=== PATIENT | male | born 1960 | race Caucasian/White ===

== ENCOUNTER → 2022-07-19 | Outpatient (CLI) | payer MEDICARE, SELFPAY | LOC: M OUTALCOH 09:03 | PROVIDERS: ATTEND Psychiatry & Neurology Psychiatry | DX: Z13.39 Encounter for screening examination for other mental health and behavioral disorders (principal) ==

== ENCOUNTER → 2024-04-05 | Outpatient (CLI) | payer OTHER | LOC: M CARPUL 13:38 | PROVIDERS: ATTEND Physician Assistant Medical | DX: R01.1 Cardiac murmur, unspecified (principal) ==

== ENCOUNTER → 2024-07-30 | Outpatient (CLI) | payer MEDICARE ==
[2024-07-30 18:15] LABS: BASO # 0.1 10^3/uL (0.0-0.2); BASO % 0.9 % (0.0-1.0); EOS # 0.1 10^3/uL (0.0-0.5); EOS % 1.8 % (0.0-3.0); HEMATOCRIT 43.4 % (42.0-52.0); HEMOGLOBIN 14.6 g/dl (13.5-17.5); LYMPH # 1.8 10^3/uL (1.5-5.0); LYMPH % 24.1 % (24.0-44.0); MEAN CORPUSCULAR HEMOGLOBIN 29.6 pg (27.0-33.0); MEAN CORPUSCULAR HGB CONC 33.6 g/dl (32.0-36.5); MEAN CORPUSCULAR VOLUME 87.9 fl (80.0-96.0); MONO # 0.6 10^3/uL (0.0-0.8); MONO % 7.5 % (2.0-8.0); NEUTROPHILS % 65.3 % (36.0-66.0); PLATELET COUNT, AUTOMATED 349 10^3/uL (150-450); RED BLOOD COUNT 4.94 10^6/uL (4.30-6.10); WHITE BLOOD COUNT 7.6 10^3/uL (4.0-10.0)
[2024-07-30 18:44] LABS: HEMOGLOBIN A1c 5.4 % (4.0-6.0)
[2024-07-30 19:00] LABS: ALKALINE PHOSPHATASE 92 U/L (46-116); ALT/SGPT 22 U/L (7.0-40); AST/SGOT 10 U/L (<34); BILIRUBIN,TOTAL 0.6 MG/DL (0.3-1.2); BLOOD UREA NITROGEN 19 MG/DL (9-23); CALCIUM LEVEL 9.5 MG/DL (8.3-10.6); CARBON DIOXIDE LEVEL 26 MMOL/L (20-31); CHLORIDE LEVEL 106 MMOL/L (98-107); CHOLESTEROL LEVEL 224 MG/DL (<200); CHOLESTEROL RISK RATIO 4.12 (<5); CREATININE FOR GFR 1.14 MG/DL (0.70-1.30); GLOMERULAR FILTRATION RATE > 60.0 (>49); GLUCOSE, FASTING 86 MG/DL (74-106); HDL CHOLESTEROL 54.3 MG/DL (>40); LDL CHOLESTEROL 146.7 MG/DL (<100); NON-HDL-C 169.7 MG/DL; POTASSIUM SERUM 4.3 MMOL/L (3.5-5.1); PSA SCREENING 6.51 NG/ML (< 4.00); SODIUM LEVEL 136 MMOL/L (136-145); TOTAL PROTEIN 7.3 G/DL (5.7-8.2); TRIGLYCERIDES LEVEL 115 MG/DL (<150)
[2024-07-30 19:03] LABS: THYROID STIMULATING HORMONE 3.536 uIU/ML (0.55-4.78)
[2024-07-30 19:04] LABS: TOTAL 25(OH) VITAMIN D 37.2 NG/ML (20.0-100.0)
[2024-07-30 19:05] LABS: FREE T4 1.33 NG/DL (0.89-1.76); VITAMIN B12 LEVEL 554 PG/ML (211-911)
[2024-07-30 19:19] LABS: HEPATITIS B SURFACE ANTIBODY NEGATIVE (POSITIVE)
[2024-07-30 19:22] LABS: HEPATITIS B SURFACE ANTIGEN NEGATIVE (NEGATIVE)
[2024-07-30 19:35] LABS: HIV 1&2 SCREEN NEGATIVE (NEGATIVE)
[2024-07-30 19:43] LABS: HEPATITIS C VIRUS ABY INDEX < 0.02 INDEX (<0.8)
[2024-08-01 20:02] LABS: HEPATITIS A IgG TOTAL NON-REACTIVE (NON-REACTIVE); HEPATITIS B CORE ANTIBODY IGG NON-REACTIVE (NON-REACTIVE)
== END ==
LOC: M PLALAB 15:36
PROVIDERS: ATTEND Nurse Practitioner Family
DX: F10.20 Alcohol dependence, uncomplicated (principal); F15.20 Other stimulant dependence, uncomplicated; Z11.59 Encounter for screening for other viral diseases; Z12.5 Encounter for screening for malignant neoplasm of prostate; Z13.1 Encounter for screening for diabetes mellitus
CPT/HCPCS: 36415; 80053; 80061; 82306; 82607; 83036; 84439; 84443; 85025; 86704; 86706; 86708; 86803; 87340; 87389; G0103

== ENCOUNTER → 2024-07-30 | Outpatient (CLI) | payer MEDICARE | LOC: M OUTALCOH 13:07 | PROVIDERS: ATTEND Psychiatry & Neurology Psychiatry | DX: F15.20 Other stimulant dependence, uncomplicated (principal); F12.20 Cannabis dependence, uncomplicated | CPT/HCPCS: 90791; G0463 ==

== ENCOUNTER 2024-08-18 16:00 | Outpatient (RCR) | payer MEDICARE | END 2024-08-19 | LOC: M OUTALCOH 16:00 | PROVIDERS: ATTEND Psychiatry & Neurology Psychiatry | DX: F15.20 Other stimulant dependence, uncomplicated (principal); F12.20 Cannabis dependence, uncomplicated ==

== ENCOUNTER 2024-09-15 16:00 | Outpatient (RCR) | payer MEDICARE | END 2024-09-18 | LOC: M OUTALCOH 16:00 | PROVIDERS: ATTEND Psychiatry & Neurology Psychiatry | DX: F15.20 Other stimulant dependence, uncomplicated (principal); F12.20 Cannabis dependence, uncomplicated ==

== ENCOUNTER 2024-10-07 09:00 | Outpatient (RCR) | payer MEDICARE | END 2024-10-19 | LOC: M OUTALCOH 09:00 | PROVIDERS: ATTEND Psychiatry & Neurology Psychiatry | DX: F15.20 Other stimulant dependence, uncomplicated (principal); F12.20 Cannabis dependence, uncomplicated ==

== ENCOUNTER 2024-11-15 16:00 | Outpatient (RCR) | payer MEDICARE | END 2024-11-19 | LOC: M OUTALCOH 16:00 | PROVIDERS: ATTEND Psychiatry & Neurology Psychiatry | DX: F15.20 Other stimulant dependence, uncomplicated (principal); F12.20 Cannabis dependence, uncomplicated ==

== ENCOUNTER 2024-12-13 14:38 | Outpatient (RCR) | payer MEDICARE | END 2024-12-17 | LOC: M OUTALCOH 14:38 | PROVIDERS: ATTEND Psychiatry & Neurology Psychiatry | DX: F15.20 Other stimulant dependence, uncomplicated (principal); F12.20 Cannabis dependence, uncomplicated ==

== ENCOUNTER → 2024-12-23 | Outpatient (CLI) | payer MEDICARE ==
[2024-12-23 11:44] LABS: APPEARANCE, URINE CLEAR (CLEAR); BACTERIA, URINE AUTO NEGATIVE (NEGATIVE); BILIRUBIN, URINE AUTO NEGATIVE (NEGATIVE); BLOOD, URINE BLOOD NEGATIVE (NEGATIVE); COLOR, URINE YELLOW (YELLOW); GLUCOSE, URINE (UA) AUTO NEGATIVE (NEGATIVE); KETONE, URINE AUTO NEGATIVE (NEGATIVE); LEUKOCYTE ESTERASE, URINE AUTO NEGATIVE (NEGATIVE); NITRITE, URINE AUTO NEGATIVE (NEGATIVE); PROTEIN, URINE AUTO NEGATIVE (NEGATIVE); RBC, URINE AUTO 0 /HPF (0-3); SPECIFIC GRAVITY URINE AUTO 1.012 (1.002-1.035); SQUAMOUS EPITHELIAL CELL UR AU 0 /HPF (0-6); UROBILINOGEN, URINE AUTO 0.2 mg/dL (0.0-2.0); WBC, URINE AUTO 0 /HPF (0-3)
== END ==
LOC: M LAB 10:51
PROVIDERS: ATTEND Nurse Practitioner Family
DX: F15.21 Other stimulant dependence, in remission (principal)

== ENCOUNTER 2025-01-13 10:40 | Outpatient (RCR) | payer MEDICARE | END 2025-01-17 | LOC: M OUTALCOH 10:40 | PROVIDERS: ATTEND Psychiatry & Neurology Psychiatry | DX: F15.20 Other stimulant dependence, uncomplicated (principal); F12.20 Cannabis dependence, uncomplicated ==

== ENCOUNTER 2025-02-10 11:00 | Outpatient (RCR) | payer MEDICARE | END 2025-02-16 | LOC: M OUTALCOH 11:00 | PROVIDERS: ATTEND Psychiatry & Neurology Psychiatry | DX: F15.20 Other stimulant dependence, uncomplicated (principal); F12.20 Cannabis dependence, uncomplicated ==

== ENCOUNTER 2025-05-16 10:48 | Outpatient (RCR) | payer MEDICARE | END 2025-05-19 | LOC: M OUTALCOH 10:48 | PROVIDERS: ATTEND Psychiatry & Neurology Psychiatry | DX: F15.20 Other stimulant dependence, uncomplicated (principal); F12.20 Cannabis dependence, uncomplicated ==

== ENCOUNTER 2025-06-16 10:44 | Outpatient (RCR) | payer MEDICARE | END 2025-06-19 | LOC: M OUTALCOH 10:44 | PROVIDERS: ATTEND Psychiatry & Neurology Psychiatry | DX: F12.20 Cannabis dependence, uncomplicated (principal); F15.20 Other stimulant dependence, uncomplicated ==

== ENCOUNTER 2025-07-18 10:49 | Outpatient (RCR) | payer MEDICARE | END 2025-07-19 | LOC: M OUTALCOH 10:49 | PROVIDERS: ATTEND Psychiatry & Neurology Psychiatry | DX: F15.20 Other stimulant dependence, uncomplicated (principal); F12.20 Cannabis dependence, uncomplicated ==

== ENCOUNTER 2025-08-18 12:29 | Outpatient (RCR) | payer MEDICARE | END 2025-08-19 | LOC: M OUTALCOH 12:29 | PROVIDERS: ATTEND Psychiatry & Neurology Psychiatry | DX: F15.20 Other stimulant dependence, uncomplicated (principal); F12.20 Cannabis dependence, uncomplicated ==